=== PATIENT | female | born 1990 | race Hispanic/Latino ===

== ENCOUNTER 2019-02-21 05:51 | Inpatient (IN) | payer MEDICAID | END 2019-02-23 18:53 | disposition home or self-care (01) | LOC: EDH 05:51 → EDHIP 05:52 → 4AH 15:26 | DX: K37 Unspecified appendicitis (principal) ==

== ENCOUNTER 2019-03-05 07:53 | Day surgery (SDC) | payer MEDICAID ==
[2019-03-04 17:14] VITALS: BP 96/50
[2019-03-04 17:25] LABS: BASOPHILS % (AUTO) 0.5 % (0.0-5.0); EOSINOPHILS % (AUTO) 0.5 % (0.0-8.0); HEMATOCRIT 34.6 % (36-48); LYMPHOCYTES % (AUTO) 20.3 % (21.0-51.0); MEAN CORPUSCULAR HEMOGLOBIN 30.3 pg (27.0-33.0); MEAN CORPUSCULAR HGB CONC 33.5 g/dL (32.0-36.0); MEAN CORPUSCULAR VOLUME 90.5 fL (79-99); NEUTROPHILS % (AUTO) 72.7 % (40.0-77.0); PLATELET COUNT (AUTO) 357 K/uL (130-400); RED BLOOD CELL COUNT(AUTO) 3.82 MIL/uL (4.00-5.50); RED CELL DISTRIBUTION WIDTH 16.2 % (11.0-15.5); WHITE BLOOD COUNT (AUTO) 8.9 K/uL (4.8-10.8)
[2019-03-04 17:25] LABS: APPEARANCE,URINE Clear (CLEAR); BILIRUBIN,URINE Negative (NEGATIVE); COLOR,URINE Yellow (YELLOW); GLUCOSE, URINE (UA) Negative (NEGATIVE); KETONES,URINE Negative (NEGATIVE); LEUKOCYTE ESTERASE ,URINE Moderate (NEGATIVE); NITRATE,URINE Negative (NEGATIVE); OCCULT BLOOD,URINE Nonhemolyzed Trace (NEGATIVE); PROTEIN,URINE Trace mg/dL (NEGATIVE); UROBILINOGEN,URINE 0.2 mg/dL (0.2-1.0)
[2019-03-04 17:35] LABS: BACTERIA,URINE Few /HPF (None Seen); SQUAMOUS EPITHELIAL CELL,UR Many /HPF (0-2)
[2019-03-04 17:40] LABS: ALANINE AMINOTRANSFERASE 36 U/L (12-78); ASPARTATE AMINOTRANSFERASE 15 U/L (10-37); BILIRUBIN,DIRECT < 0.1 mg/dL (0.0-0.3); BILIRUBIN,TOTAL 0.1 mg/dL (0.2-1.0); TOTAL PROTEIN, SERUM 7.3 g/dL (6.0-8.3)
--- NOTE | 2019-03-04 18:00 | NUR ---
ABNORMAL LABS ABNORMAL LABS REPORTED TO DR. KEENE VIA PHONE: H&H 11.6 & 34.6, TOTAL BILI 0.1, URINALYSIS- NITRATES NEGATIVE, LEUKEST MODERATE, RBC 2-5, WBC 6-10, BACT FEW. ORDERED TO GIVE ANCEF 2 GM IV PREOP IN HOLDING AREA.
[2019-03-05] VITALS (15 sets, daily range): BP systolic 105–135; BP diastolic 53–76
[~2019-03-05] VITALS: Ht 147.3 cm; Wt 51.9 kg
[2019-03-05] MEDS: CEFAZOLIN SODIUM 1 GM VIAL IVP SCH ×2 (07:30→08:45)
[~2019-03-05 07:53] MED LIST: OMEP20TA25 PO; TYL3 PO
[2019-03-05] MEDS ORDERED: HEPARIN SODIUM 1000UNIT/ML 10ML VIAL ONE (08:05)
[2019-03-05] MEDS ORDERED: PROPOFOL 10 MG/ML 20ML VIAL IV ONE (08:21)
[2019-03-05] MEDS ORDERED: ROCURONIUM 10MG/1ML SYR 10 MG/ML ML ONE (08:21)
[2019-03-05] MEDS ORDERED: FENTANYL CITRATE PF 50 MCG/1 ML 2ML VIAL ONE (08:21)
[2019-03-05] MEDS ORDERED: MIDAZOLAM HCL 1 MG/ML 2ML VIAL ONE (08:21)
[2019-03-05] MEDS ORDERED: LIDOCAINE PF 2% 5ML ABBOJECT ONE (08:21)
[2019-03-05] MEDS: LACTATED RINGERS 1000ML 1,000 ML IV SCH ×2 (08:37→08:38)
[2019-03-05] MEDS ORDERED: DEXAMETHASONE SOD PHOSPHATE 4 MG/ML 1ML VIAL ONE (08:42)
[2019-03-05] MEDS ORDERED: ONDANSETRON HCL 4 MG/2 ML VIAL ONE ×3 (08:43→10:11)
[2019-03-05] MEDS ORDERED: GLYCOPYRROLATE 1 MG/5 ML SYRINGE ONE (08:57)
[2019-03-05] MEDS ORDERED: NEOSTIGMINE 5MG/5ML SYR IV ONE (08:58)
[2019-03-05] MEDS ORDERED: KETOROLAC TROMETHAMINE 30MG/ML ONE (08:59)
[2019-03-05] MEDS ORDERED: MEPERIDINE-PF 25 MG/ML SYG ONE ×2 (09:59→10:11)
--- NOTE | 2019-03-05 10:49 | NUR ---
PATIENT RETUNED FROM PACU IN NO DISTRESS, PATIENT HAS X2 SMALL BAND AIDE AND LARGE BAND AIDE TO UPPER ABDOMEN AND 1 DRESSING TO UMBILICAL AREA. NO SIGNS OF ACTIVE BLEEDING OR HEMATOMA TO AREA. CALL CISSE WITHIN REACH BOTH PATIENT AND FAMILY ENCOURAGED TO CALL FOR ASSISTANCE, BOTH VERBALIZED UNDERSTANDING AND AGREED TO CALL.
--- NOTE | 2019-03-05 11:20 | NUR ---
PATIENT ASSISTED TO CHANGE, ABDOMINAL DRESSING IS CLEAN AND DRY. PATIENT STATES FEELING FINE.
== END 2019-03-05 11:30 | disposition home or self-care (01) ==
LOC: DAH 07:53
PROVIDERS: ATTEND Surgery
DX: K80.10 Calculus of gallbladder with chronic cholecystitis without obstruction (principal); K42.9 Umbilical hernia without obstruction or gangrene; F32.9 Major depressive disorder, single episode, unspecified; Z98.890 Other specified postprocedural states; Z79.899 Other long term (current) drug therapy; Z83.3 Family history of diabetes mellitus
CPT/HCPCS: 36415; 47562; 49585; 80076; 81001; 84703; 85025; 88304; A4218; A4450; A4930; C1769 ×4; J0690; J1100; J1644; J2001; J2175 ×2; J2250; J2405 ×3; J2704; J2710; J3010; J3490; J7030; J7120 ×2; J1885